=== PATIENT | female | born 1995 | race Caucasian/White ===

== ENCOUNTER 2021-09-26 00:19 | Outpatient (CLI) | payer BC ==
[~2021-09-26] VITALS: Ht 172.7 cm; Wt 71.8 kg
[2021-09-26] MEDS ORDERED: PRENATAL (00:46)
[2021-09-26 01:00] VITALS: BP 130/76; PULSE 96; TEMP 98.3
--- NOTE | 2021-09-26 02:50 | NUR ---
0025- 25 YO, , 39.5: PT PRESENTS TO OB FLOOR, AMBULATORY, ACCOMPANIED BY SPOUSE, SIMRAN. PT C/O CTX EVERY 5 MINUTES. PT REPORTS SHE HAS BEEN VIO[place] ALL DAY LONG BUT THE CTX BECAME MORE INTENSE AROUND 2330. REPORTS +FM, +CTX, -VB, -LOF. PT REPORTS SHE WAS SEEN IN THE OFFICE TODAY WAS DILATED /-2. 0035- EFM AND TOCO APPLIED. VSS. 0043- SVE 0103- PT WOULD LIKE TO GET UP AND WALK AROUND. BIRTHING BALL PROVIDED WELL. 0132- EFM AND TOCO REAPPLIED. 0140- SVE PERFORMED BY THIS RN AND CERVIX UNCHANGED. 0145- DR. PERERA ON THE UNIT AT THIS TIME AND GIVEN AN UPDATE ON PT STATUS. 0230- D/W PT ABOUT POC AND IF UNCHANGED WOULD BE DISCHARGED HOME. SVE PERFORMED BY THIS RN AND STILL UNCHANGED . TERM LABOR PRECAUTIONS THOROUGHLY REVIEWED WITH PT AND HER . PT AND HER SPOUSE DEMONSTRATE UNDERSTANDING. INSTRUCTIONS REVIEWED AND SIGNED. ALL QUESTIONS ANSWERED. 0235- DR. PERERA NOTIFIED THAT THE PT'S CHECK IS UNCHANGED. ORDERS REC'D TO DC PT HOME. 0249- PT AMBULATES OFF UNIT, ACCOMPANIED BY SPOUSE, AMBULATORY. DC'D HOME.
== END 2021-09-26 02:49 | disposition home or self-care (01) ==
LOC: LDRO 00:19
DX: O62.9 Abnormality of forces of labor, unspecified (principal); Z3A.00 Weeks of gestation of pregnancy not specified

== ENCOUNTER 2021-09-26 14:09 | Inpatient (IN) | payer BC ==
[~2021-09-26] VITALS: Ht 172.7 cm; Wt 71.8 kg
[2021-09-26] VITALS (19 sets, daily range): BP systolic 18–139; BP diastolic 57–82; PULSE 74–150; TEMP 97–98.4
[~2021-09-26 14:09] MED LIST: PRENATAL
[2021-09-26 14:42] LABS: BASO % 0.1 % (0.0-2.0); EOS % 0.1 % (0.0-4.0); GRAN # 14.7 K/mm3 (1.4-6.5); GRAN % 86.6 % (42.2-75.2); HEMOGLOBIN 12.6 g/dl (12.5-16.0); LYMPH # 1.2 K/mm3 (1.2-3.4); LYMPH % 7.2 % (20.0-51.0); MEAN CELL VOLUME 84 fl (80.0-100.0); MEAN CORPUSCULAR HEMOGLOBIN 27 pg (27-31); MEAN CORPUSCULAR HGB CONC 32 g/dl (33.0-37.0); MEAN PLATELET VOLUME 11.2 fl (7.4-10.4); MONO # 0.9 K/mm3 (0.1-0.6); MONO % 5.5 % (1.7-9.3); PLATELET COUNT 226 K/mm3 (130-400); RED BLOOD COUNT 4.63 M/mm3 (4.10-5.30); REDCELL DISTRIBUTION WIDTH-CV 14.6 % (11.5-14.5)
--- NOTE | 2021-09-26 15:14 | NUR ---
1415 PATIENT HERE FROM OFFICE FOR CONTRACTIONS GETTING MORE INTENSE. ASSESSMENT COMPLETED. IV STARTED IN LEFT WRIST LR HUNG. PATIENT WANTS EPIDURAL. EFM ON FHT 125 BABY VERY ACTIVE. CONTRACTIONS 3-5 MIN, PATIENT BREATHS THROUGH EACH ONE.
--- NOTE | 2021-09-26 15:18 | NUR ---
144 LUCIO SAVAGE CLOCK AND WATCH HANDS PAINTER AT BEDSIDE FOR EPIDERAL. SITS UP ON EDGE OF BED. TOLERATES WELL SEE CLOCK AND WATCH HANDS PAINTER NOTES FOR QUESTIONS
--- NOTE | 2021-09-26 16:21 | NUR ---
1620 DR CHILD HERE. SVE /+2. AROM WITH AMNIOHOOK LARGE AMOUNT CLEAT FLUID NOTED
--- NOTE | 2021-09-26 17:55 | NUR ---
1645 sve 10/100/+1 will start pushing with contractions. Dr. quintanilla at bedside. 1700 continues to push. fht 118. 1735 BABY GIRL BORN VIA . STRONG CRY NOTED. TO MOMS CHEST SKIN TO SKIN. CORD CLAMPED AND CUT BY DR. MARIEL WHITE AND STIMULATED BY NURSERY RN. 1740 PLACENTA DELIVERED AND PITOCIN STARTED AT 333 PER PROTOCOL. FUNDUS FIRM. BLEEDING WNL. BABY REMAINS SKIN TO SKIN.
--- NOTE | 2021-09-26 18:40 | NUR ---
183- REPORT REC'D FROM [facility] SAMANIEGO/ TRANSFER OF CARE. PT SITTING UP IN BED NURSING INFANT. PT REPORTS SOME MILD CRAMPING. PITOCIN INFUSING AT 333 ML/HR. 1834- MOTRIN AND SENNA-LOU GIVEN PO. 1839- DINNER TRAY DELIVERED. PT STILL NURSING INFANT SKIN TO SKIN.
--- NOTE | 2021-09-26 21:00 | NUR ---
1951- PT UP TO BR. ABLE TO AMBULATE W/O ANY DIFFICULTY. STEADY GAIT. ONCE PT GETS UP TO BR AND SIT DOWN ON TOILET STEADY STREAM OF BLOOD OBSERVED. PT DENIES ANY FEELINGS OF DIZZINESS OR LIGHTHEADEDNESS. 1953- RN ESCORTED BACK TO BED. BLEEDING HAS STOPPED. FUNDUS BOGGY, MASSAGED AND SEMI- FIRM. NO BLEEDING OBSERVED WHEN MASSAGING UTERUS. BP 128/68, HR 107. 1954- DR. CHILD NOTIFIED OF PT'S BLEEDING AND THE NEED FOR SOME MEDICATION. TORB: ADMINISTER METHERINE 0.2 MG IM, HEMABATE 250 MCG IM, IMMODIUM 2 MG PRN. 1999- METHERGINE 0.2 MG IM GIVEN IN LT THIGH. BP 104/55, HR 108. MASSAGED FUNDUS. 2007- HEMABATE 250 MCG IM GIVEN IN LT DELTOID 2009- FUNDUS MIDLINE AND 1 BELOW UMBILICUS. INSTRUCTED PT TO FEEL FUNDUS AND HOW FIRM IT IS AND TO MASSAGE FROM TIME TO TIME AND NOTIFY IF THE BLEEDING INCREASES AGAIN. PT DEMONSTRATES UNDERSTANDING. 2014- PT UP TO BR. SCANT LOCHIA. FUNDUS MIDLINE AND FIRM,1 BELOW UMBILICUS. PT UP TO BR. VOID X1 (100 ML) 2019- BP 121/80 HR 94. FUNDUS FIRM, MIDLINE AND AT UMBILICUS. PT ABLE TO AMBULATE BACK TO BR W/O ANY ISSUES. 2021- BP 127/79 HR 90. PT C/O NAUSEA AND HOT. COOL WASHCLOTHS APPLIED TO PT'S FOREHEAD. ZOFRAN 4 MG IV GIVEN. 2024- BP 128/82 HR 87. FUNDUS FIRM AND MIDLINE, 1 BELOW UMBILICUS. SCANT LOCHIA. NO CLOTS. 2029- EPIDURAL CATHETER REMOVED BY THIS RN. PT TOLERATED WELL. BLUE TIP INTACT. NO REDNESS OR DRAINAGE NOTED FROM EPIDURAL SITE. BP 121/76 HR 88 2049- PT NO LONGER C/O NAUSEA. PT VOMITED (250 ML). PT REPORTS FEELING MUCH BETTER. FUNDUS STILL REMAINS FIRM, MILDINE AND AT UMBILICUS. 2054- TRANSFERRED TO ROOM 207, AMBULATORY.
[2021-09-27 01:10] VITALS: BP 101/60; PULSE 80
[2021-09-27 08:00] VITALS: BP 105/65; PULSE 85; TEMP 97.8
--- NOTE | 2021-09-27 11:06 | NUR ---
Initial visit; Patient and family thanked Getterer for offering congratulations and God's blessings for the for a baby girl. Getterer thanked patient for choosing [facility].
[2021-09-27 17:00] VITALS: BP 94/58; PULSE 85; TEMP 97.4
[2021-09-27 19:05] VITALS: BP 91/63; PULSE 71; TEMP 97.9
[2021-09-28 07:30] VITALS: BP 113/67; PULSE 77; TEMP 97.3
[2021-09-28] MEDS ORDERED: IBU800 M1 PO (09:31)
--- NOTE | 2021-09-28 11:00 | NUR ---
Discharge instructions and follow up care reviewed with pt and at the bedside. Both verbalized an understanding, agreed with the plan and states no questions or concerns at this time.
== END 2021-09-28 11:10 | disposition home or self-care (01) | DRG 807 ==
LOC: LDRO 14:09 → EDSTATUS 14:38 → LDR 14:42 → OB 22:24
PROVIDERS: ADMIT Obstetrics & Gynecology
PROC: 10E0XZZ Delivery of Products of Conception, External Approach (ICD-10-PCS; principal; 2021-09-26)
PROC: 0KQM0ZZ Repair Perineum Muscle, Open Approach (ICD-10-PCS; 2021-09-26)
PROC: 10907ZC Drainage of Amniotic Fluid, Therapeutic from Products of Conception, Via Natural or Artificial Opening (ICD-10-PCS; 2021-09-26)
DX: O76 Abnormality in fetal heart rate and rhythm complicating labor and delivery (principal); Z37.0 Single live birth; O70.1 Second degree perineal laceration during delivery; Z3A.39 39 weeks gestation of pregnancy; Z23 Encounter for immunization
CPT/HCPCS: J2210; J2405; J2590; J7120